=== PATIENT | male | born 1985 | race Caucasian/White ===

== ENCOUNTER 2019-02-11 10:24 | Emergency (ER) | payer SELFPAY ==
[~2019-02-11] VITALS: Ht 175.3 cm; Wt 79.2 kg
[2019-02-11 10:26] VITALS: BP 145/94
== END 2019-02-11 11:32 | disposition home or self-care (01) ==
LOC: ED 11:15
DX: H66.002 Acute suppurative otitis media without spontaneous rupture of ear drum, left ear (principal); K02.9 Dental caries, unspecified
CPT/HCPCS: 99283

== ENCOUNTER 2020-10-07 09:04 | Emergency (ER) | payer MEDICAID ==
[~2020-10-07] VITALS: Ht 175.3 cm; Wt 75.1 kg
--- NOTE | 2020-10-07 09:10 | NUR ---
NOT IN LOBBY X1
[2020-10-07 09:29] VITALS: BP 150/108
== END 2020-10-07 09:49 | disposition home or self-care (01) ==
LOC: ED 09:41
DX: S01.512A Laceration without foreign body of oral cavity, initial encounter (principal); X58.XXXA Exposure to other specified factors, initial encounter; Y93.89 Activity, other specified; Y92.89 Other specified places as the place of occurrence of the external cause; Y99.8 Other external cause status
CPT/HCPCS: 99283

== ENCOUNTER 2020-10-29 08:14 | Emergency (ER) | payer MEDICAID, OTHER ==
[~2020-10-29] VITALS: Ht 175.3 cm; Wt 75.7 kg
--- NOTE | 2020-10-29 08:26 | NUR ---
WINERY WORKER: EKG COMPLETED IN TRIAGE.
--- NOTE | 2020-10-29 08:43 | NUR ---
PT WALKED BACK FROM TRIAGE WITH CHIEF COMAPLINT OF CP FOR PAST 3 DAYS. PT DENIES SOB, N/V, OR RECENT TRAUMA.
[2020-10-29] MEDS ORDERED: ALBUTEROL/IPRATROPIUM 2.5MG/0.5MG, 3 ML ONE (08:49)
--- NOTE | 2020-10-29 08:56 | NUR ---
BACK FORM IMAGING, BREATHING TREATMENT ADMINISTERED.
[2020-10-29] MEDS ORDERED: ALBUTEROL/IPRATROPIUM 2.5MG/0.5MG, 3 ML NPPB ONE (09:00)
[2020-10-29] MEDS ORDERED: KETOROLAC 30 MG/1 ML IM ONE (09:30)
--- NOTE | 2020-10-29 09:45 | NUR ---
PT RESTING IN BED, CALL LIGHT IN REACH
[2020-10-29] MEDS ORDERED: KETOROLAC 60 MG/2 ML ONE (10:15)
[2020-10-29 10:20] VITALS: BP 135/78
--- NOTE | 2020-10-29 11:00 | NUR ---
DC instructions reviewed.
== END 2020-10-29 11:06 | disposition home or self-care (01) ==
LOC: ED 08:44
DX: S29.011A Strain of muscle and tendon of front wall of thorax, initial encounter (principal); J44.1 Chronic obstructive pulmonary disease with (acute) exacerbation; X58.XXXA Exposure to other specified factors, initial encounter; Y93.89 Activity, other specified; Y92.89 Other specified places as the place of occurrence of the external cause; Y99.8 Other external cause status
CPT/HCPCS: 71046; 93005; 94640; 96372; 99283; J1885; J7512

== ENCOUNTER 2020-10-31 20:42 | Emergency (ER) | payer OTHER ==
[~2020-10-31] VITALS: Ht 175.3 cm; Wt 71.3 kg
[2020-10-31 21:55] VITALS: BP 115/68
[2020-10-31] MEDS ORDERED: KETOROLAC 30 MG/1 ML ONE (22:18)
[2020-10-31] MEDS ORDERED: KETOROLAC 60 MG/2 ML ONE (22:21)
[2020-10-31] MEDS ORDERED: KETOROLAC 60 MG/2 ML IM ONE (22:30)
[2020-10-31] MEDS ORDERED: KETOROLAC 30 MG/1 ML IM ONE (22:30)
--- NOTE | 2020-10-31 23:00 | NUR ---
INCENTIVE SPIROMETER GIVEN TO PT WITH EDUCATION. PT ABLE TO DEMONSTRATE PROPER USE.
== END 2020-10-31 23:28 | disposition left against medical advice (07) ==
LOC: ED 21:28
DX: S22.31XA Fracture of one rib, right side, initial encounter for closed fracture (principal); V87.8XXA Person injured in other specified noncollision transport accidents involving motor vehicle (traffic), initial encounter; Y93.55 Activity, bike riding; Y92.410 Unspecified street and highway as the place of occurrence of the external cause; Y99.8 Other external cause status
CPT/HCPCS: 71101; 93005; 96372; 99283; J1885

== ENCOUNTER 2020-11-12 18:30 | Emergency (ER) | payer MEDICAID ==
[~2020-11-12] VITALS: Ht 175.3 cm; Wt 73.6 kg
[2020-11-12 18:34] VITALS: BP 143/87
--- NOTE | 2020-11-12 20:16 | NUR ---
NIL X 1
--- NOTE | 2020-11-12 20:44 | NUR ---
NIL X 2
--- NOTE | 2020-11-12 21:00 | NUR ---
NIL X 3
== END 2020-11-12 21:02 | disposition left against medical advice (07) ==
LOC: ED 18:45
DX: Z53.21 Procedure and treatment not carried out due to patient leaving prior to being seen by health care provider (principal)